=== PATIENT | female | born 1960 | race Caucasian/White ===

== ENCOUNTER → 2017-08-14 11:56 | Outpatient (CLI) | payer OTHER, SELFPAY ==
[2017-08-14 13:59] LABS: Absolute Lymphocyte Count 1.85 X10^3/ul (0.83-4.51); Absolute Neutrophil Count 2.3 X10^3/uL (2.0-7.7); Basophil# 0.02 X10^3/uL; Basophil% 0.4 % (0-1); Eosinophil# 0.07 X10^3/uL; Eosinophils% 1.5 % (0-5); Hematocrit 38.6 % (37-47); Hemoglobin 12.9 g/dl (12.0-15.0); Lymphocyte # 1.85 X10^3/ul (4.0); Mean Corp Hgb Conc 33.4 g/gl (32-36); Mean Corpuscular Hgb 31.2 pg (27.0-32.0); Mean Corpuscular Volume 93.5 fL (81-99); Mean Platelet Vol. 9.2 fl (6.2-12.0); Monocyte# 0.43 X10^3/uL; Monocyte% 9.3 % (0-10); Neutrophil # 2.25 X10^3/uL (2.7-7.7); Neutrophil % 48.8 % (47-70); Platelet Count 354 K/mm3 (150-450); RBC Distribution Width CV 12.2 % (11.6-14.6); RBC Distribution Width SD 40.9 fl (35.1-43.9); Red Blood Count 4.13 M/mm3 (4.2-5.4); White Blood Count 4.6 K/mm3 (4.4-11.0)
[2017-08-14 14:03] LABS: POSITIVE COUNT NO; POSITIVE DIFFERENTIAL NO; POSITIVE MORPHOLOGY NO
[2017-08-14 14:13] LABS: Progesterone Level 0.26 ng/mL (See Comment); Vitamin B12 755 pg/mL (211-911)
[2017-08-14 14:21] LABS: ALB/GLOB Ratio 1.2 RATIO (0.9-2.4); AST(SGOT) 13 U/L (15-37); Alanine Aminotransfer ALT/SGPT 23 U/L (13-56); Albumin, Serum 4.1 g/dL (3.2-5.0); Alkaline Phosphatase 55 U/L (45-117); Anion Gap 6 (5-15); BUN 15 mg/dL (7-18); BUN/Creat Ratio 21.5 RATIO (10-20); Chloride 105 mmol/L (98-107); Cholesterol 290 mg/dL (200); EST Glomerular Filtration Rate 92 mL/min (>60); Est Glom Filt Rate - Afr Amer 112 mL/min (>60); Estradiol 28.9 pg/mL; Follicle Stimulating Hormone 34.9 mIU/mL; Free T3 2.3 pg/mL (2.18-3.98); Globulin 3.4 g/dL (2.2-4.2); Glucose 91 mg/dL (74-106); High Density Lipoprotein 71 mg/dL; Potassium 4.2 mmol/L (3.5-5.1); Protein, Total 7.5 g/dL (6.4-8.2); Sodium Level 137 mmol/L (136-145); T4 Free Direct 0.75 ng/dL (0.76-1.46); Thyroid Stim Hormone (TSH) 1.32 uIU/mL (0.358-3.74); Triglycerides 137 mg/dL; Very Low Density Lipoprotein 27 mg/dL (5-40)
[2017-08-16 12:58] LABS: Vitamin D 1,25-Dihydroxy 45.1 pg/mL (19.9-79.3)
[2017-08-18 14:08] LABS: DHEA Sulfate 112.1 ug/dL (29.4-220.5); Insulin Like Growth Factor 91 ng/mL (53-190); T3 Reverse 12.5 ng/dL (9.2-24.1); Testosterone, % Free 2.63 % (0.50-2.80); Testosterone, Free 0.26 ng/dL (0.10-0.85); Testosterone, Total 10 ng/dL (3-41)
[2017-08-18 14:20] LABS: Anti-Thyroglobulin AB < 1.0 IU/mL (0.0-0.9); Thyroid Peroxidase AB 14 IU/mL (0-34)
== END ==
PROVIDERS: Family Provider Family Medicine; PCP Family Medicine
DX: N95.1 Menopausal and female climacteric states (principal); N94.3 Premenstrual tension syndrome; R53.83 Other fatigue; R68.82 Decreased libido; E55.9 Vitamin D deficiency, unspecified; E53.8 Deficiency of other specified B group vitamins; E23.3 Hypothalamic dysfunction, not elsewhere classified; E07.9 Disorder of thyroid, unspecified
CPT/HCPCS: 36415; 80053; 80061; 82607; 82627; 82652; 82670; 82746; 83001; 84144; 84305; 84402; 84403; 84432; 84439; 84443; 84481; 84482; 85025; 86376; 86800; 82626

== ENCOUNTER → 2017-12-08 07:56 | Outpatient (CLI) | payer OTHER, SELFPAY ==
[2017-12-08 10:56] LABS: Cholesterol 298 mg/dL (200); High Density Lipoprotein 72 mg/dL; T4 Total, Thyroxin 7.1 ug/dL (4.8-13.9); Thyroid Stim Hormone (TSH) 2.35 uIU/mL (0.358-3.74); Triglycerides 134 mg/dL; Very Low Density Lipoprotein 27 mg/dL (5-40)
== END ==
PROVIDERS: Family Provider Family Medicine; PCP Family Medicine; Visit Provider Family Medicine
DX: R53.81 Other malaise (principal); E78.00 Pure hypercholesterolemia, unspecified
CPT/HCPCS: 36415; 80061; 84436; 84443

== ENCOUNTER → 2017-12-15 16:13 | Outpatient (CLI) | payer OTHER, SELFPAY ==
--- NOTE | 2017-12-15 15:00 | LIP_PTH ---
PATIENT: GEOVANNY GONZALES LOC: [facility] U#:[id number] AGE/SX: 65/F ROOM: RE12/15/[address]: Dr. Sarai Hill MD : 1960 BED: DIS: SPEC #: [id number] RECD: 12/15/17 16:11 STATUS: ANTONIO REJaci #: [id number] JEMAL: 12/15/17 15:[address]: Sarai Hill DEPT: SURGICAL PATHOLOGY RECD BY: Casimiro Burroughs ENTERED: 12/18/17 13:30 SP TYPE: LIPOMA OTHR DR: Dr. Colton Hernandez MD Tissues: Soft tissues, NOS Procedures: Surgery Specimen Level III HEADER OPERATION: Excision of right shoulder lipoma PRE-OP DIAGNOSIS: Right shoulder lipoma TISSUE SUBMITTED: Right shoulder lipoma MICROSCOPIC DIAGNOSIS Soft tissue lesion of right shoulder, excision: Mature adipose tissue consistent with lipoma. AM:gio 12/19/17 MICROSCOPIC DESCRIPTION Slides are reviewed. GROSS DESCRIPTION Received in fixative is one container labeled with the patient's name and designated right shoulder lipoma. The specimen consists of an irregular fragment of yellow fatty tissue measuring 4.5 x 3.5 x 2.5 cm. Serial sections reveal homogenous yellow cut surfaces without areas of cyst formation, necrosis or hemorrhage. Hunter Trapper sections are submitted in two cassettes. / AM:gio 12/18/17 TC:1 CPT: 24180
== END ==
PROVIDERS: Family Provider Family Medicine; PCP Family Medicine; Visit Provider Surgery
DX: D17.39 Benign lipomatous neoplasm of skin and subcutaneous tissue of other sites (principal)
CPT/HCPCS: 88304

== ENCOUNTER → 2018-02-09 11:40 | Outpatient (CLI) | payer OTHER, SELFPAY ==
--- NOTE | 2018-02-09 11:43 | BI_ITS ---
MAMMOGRAPHY - BILATERAL SCREENING REASON FOR EXAM: Female, 58 years old. Routine annual screening examination. PERTINENT HISTORY: Non-contributory. TECHNIQUE: Digital bilateral breast татьяна (3D mammographic acquisition) in the CC and MLO projections. 2-D mediolateral oblique (MLO) and craniocaudad (CC) views of both breasts were obtained. CAD: Full Field Digital Mammography with Computer Added Detection was performed. COMPARISON: Comparison is made with prior outside examination dated November 26, 2015. FINDINGS: Breast Composition: There are scattered areas of fibroglandular density. There are no dominant masses or suspicious calcifications. Stable 7.8 mm well-defined nodule in the axillary region of the left breast incomplete with a small lymph node. No other significant abnormalities are identified. There has been no significant change since the prior study. BI/SCREENING MAMM (CAD), BILAT IMPRESSION: Stable bilateral screening mammogram. Yearly follow-up mammogram recommended. (A) ASSESSMENT CATEGORY: BIRADS Category 2: Benign. A letter regarding these results will be sent to the patient by the facility within 30 days. Approximately 10% of breast cancers are not detected by mammography. A normal mammogram should not delay biopsy of a clinically suspicious abnormality. [id number] Electronically Signed: Vikram Chaves MD at 8:57 EDT Tel [phone], Service support ,
== END ==
PROVIDERS: Family Provider Family Medicine; PCP Family Medicine; Visit Provider Family Medicine
DX: Z12.31 Encounter for screening mammogram for malignant neoplasm of breast (principal)
CPT/HCPCS: 77063; 77067

== ENCOUNTER → 2018-06-04 11:04 | Outpatient (CLI) | payer OTHER, SELFPAY ==
[2017-12-08 08:53] VITALS: BMI 23.3
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
== END ==
PROVIDERS: Family Provider Family Medicine; PCP Family Medicine; Referring Provider Family Medicine; Visit Provider Family Medicine
DX: M54.2 Cervicalgia (principal)
CPT/HCPCS: 72050

== ENCOUNTER → 2018-09-20 06:45 | Outpatient (CLI) | payer OTHER, SELFPAY ==
[2018-09-20 07:43] LABS: Absolute Lymphocyte Count 1.46 X10^3/ul (0.83-4.51); Absolute Neutrophil Count 1.6 X10^3/uL (2.0-7.7); Basophil# 0.01 X10^3/uL; Basophil% 0.3 % (0-1); Eosinophil# 0.09 X10^3/uL; Eosinophils% 2.6 % (0-5); Hematocrit 44.2 % (37-47); Hemoglobin 14.6 g/dl (12.0-15.0); Lymphocyte # 1.46 X10^3/ul (4.0); Lymphocyte % 42.1 % (19-41); Mean Corpuscular Hgb 31.1 pg (27.0-32.0); Mean Corpuscular Volume 94.2 fL (81-99); Mean Platelet Vol. 9.1 fl (6.2-12.0); Monocyte# 0.31 X10^3/uL; Monocyte% 8.9 % (0-10); Neutrophil % 46.1 % (47-70); Platelet Count 381 K/mm3 (150-450); RBC Distribution Width CV 12.5 % (11.6-14.6); RBC Distribution Width SD 42.2 fl (35.1-43.9); Red Blood Count 4.69 M/mm3 (4.2-5.4); White Blood Count 3.5 K/mm3 (4.4-11.0)
[2018-09-20 07:44] LABS: POSITIVE COUNT NO; POSITIVE DIFFERENTIAL NO; POSITIVE MORPHOLOGY NO
[2018-09-20 08:40] LABS: BUN 12 mg/dL (7-18); Creatinine, Serum 0.64 mg/dL (0.55-1.02); EST Glomerular Filtration Rate 102 mL/min (>60); Glucose 86 mg/dL (74-106)
[2018-09-20 08:41] LABS: ALB/GLOB Ratio 1.1 RATIO (0.9-2.4); AST(SGOT) 20 U/L (15-37); Alanine Aminotransfer ALT/SGPT 28 U/L (13-56); Albumin, Serum 4.3 g/dL (3.2-5.0); Alkaline Phosphatase 65 U/L (45-117); Anion Gap 11 (5-15); BUN/Creat Ratio 18.7 RATIO (10-20); Calcium,Total 9.7 mg/dL (8.5-10.1); Chloride 101 mmol/L (98-107); Est Glom Filt Rate - Afr Amer 123 mL/min (>60); Follicle Stimulating Hormone 64.3 mIU/mL; Free T3 2.7 pg/mL (2.18-3.98); Potassium 3.9 mmol/L (3.5-5.1); Protein, Total 8.3 g/dL (6.4-8.2); Sodium Level 138 mmol/L (136-145); T4 Free Direct 0.83 ng/dL (0.76-1.46); Thyroid Stim Hormone (TSH) 2.01 uIU/mL (0.358-3.74)
[2018-09-23 20:06] LABS: DHEA Sulfate 147.8 ug/dL (29.4-220.5); Testosterone, % Free 0.82 % (0.50-2.80); Testosterone, Free 0.12 ng/dL (0.10-0.85); Testosterone, Total 15 ng/dL (3-41)
[2018-09-24 09:48] LABS: Insulin Like Growth Factor 108 ng/mL (46-172)
[2018-12-26 10:17] LABS: Absolute Lymphocyte Count 1.73 X10^3/uL (0.83-4.51); Absolute Neutrophil Count 1.2 X10^3/uL (2.0-7.7); Basophil# 0.04 X10^3/uL; Basophil% 1.2 % (0-1); Eosinophil# 0.09 X10^3/uL; Eosinophils% 2.6 % (0-5); Hematocrit 37.8 % (37-47); Hemoglobin 12.2 g/dL (12.0-15.0); Lymphocyte # 1.73 X10^3/ul (4.0); Lymphocyte % 50.7 % (19-41); Mean Corp Hgb Conc 32.3 g/dL (32-36); Mean Corpuscular Hgb 31.4 pg (27.0-32.0); Mean Corpuscular Volume 97.2 fL (81-99); Mean Platelet Vol. 8.8 fl (6.2-12.0); Monocyte# 0.34 X10^3/uL; NRBC Flagged by Analyzer 0 % (0-5); Neutrophil # 1.21 X10^3/uL (2.7-7.7); Neutrophil % 35.5 % (47-70); Platelet Count 375 K/mm3 (150-450); RBC Distribution Width SD 42.8 fl (35.1-43.9); Red Blood Count 3.89 M/mm3 (4.2-5.4); White Blood Count 3.4 K/mm3 (4.4-11.0)
[2018-12-26 10:43] LABS: Cholesterol 291 mg/dL (200); Follicle Stimulating Hormone 39.4 mIU/mL; High Density Lipoprotein 72 mg/dL; Prothrombin Time (Protime)PT. 13.4 SECONDS (11.7-14.9); Triglycerides 155 mg/dL; Very Low Density Lipoprotein 31 mg/dL (5-40)
[2018-12-26 10:44] LABS: Partial Thromboplast Time 29.6 Seconds (24.1-36.2)
[2018-12-29 12:07] LABS: Testosterone, Total 127 ng/dL (3-41)
[2018-12-29 15:18] LABS: Testosterone, % Free 1.65 % (0.50-2.80)
== END ==
PROVIDERS: Family Provider Family Medicine; PCP Family Medicine
DX: E55.9 Vitamin D deficiency, unspecified (principal); N95.1 Menopausal and female climacteric states; R53.83 Other fatigue; R68.82 Decreased libido; E23.3 Hypothalamic dysfunction, not elsewhere classified
CPT/HCPCS: 36415; 80053; 80061; 82306; 82627; 83001; 84305; 84402; 84403; 84439; 84443; 84481; 85025; 85610; 85730; 82626

== ENCOUNTER → 2018-12-26 07:47 | Outpatient (CLI) | payer OTHER, SELFPAY | PROVIDERS: Family Provider Family Medicine; PCP Family Medicine | DX: N95.1 Menopausal and female climacteric states (principal); E23.3 Hypothalamic dysfunction, not elsewhere classified ==

== ENCOUNTER → 2019-12-19 09:15 | Outpatient (CLI) | payer OTHER, SELFPAY ==
[2017-12-08 08:53] VITALS: BMI 23.3
[2019-12-19 10:37] LABS: ALB/GLOB Ratio 1.1 RATIO (0.9-2.4); AST(SGOT) 12 U/L (15-37); Alanine Aminotransfer ALT/SGPT 20 U/L (13-56); Albumin, Serum 3.9 g/dL (3.2-5.0); Alkaline Phosphatase 46 U/L (45-117); Anion Gap 5 (5-15); BUN 15 mg/dL (7-18); BUN/Creat Ratio 21.4 RATIO (10-20); Calcium,Total 8.4 mg/dL (8.5-10.1); Chloride 108 mmol/L (98-107); EST Glomerular Filtration Rate 91 mL/min (>60); Est Glom Filt Rate - Afr Amer 110 mL/min (>60); Follicle Stimulating Hormone 11.9 mIU/mL; Free T3 2.6 pg/mL (2.18-3.98); Globulin 3.4 g/dL (2.2-4.2); Glucose 87 mg/dL (74-106); Potassium 3.8 mmol/L (3.5-5.1); Protein, Total 7.3 g/dL (6.4-8.2); Sodium Level 138 mmol/L (136-145); T4 Free Direct 0.77 ng/dL (0.76-1.46); Thyroid Stim Hormone (TSH) 2.18 uIU/mL (0.358-3.74)
[2019-12-23 12:07] LABS: Testosterone, Free 3.59 ng/dL (0.10-0.85); Testosterone, Total 219 ng/dL (3-41)
[2019-12-23 13:27] LABS: Testosterone, % Free 1.64 % (0.50-2.80)
== END ==
PROVIDERS: PCP Family Medicine
DX: N95.1 Menopausal and female climacteric states (principal); E07.9 Disorder of thyroid, unspecified
CPT/HCPCS: 36415; 80053; 83001; 84402; 84403; 84439; 84443; 84481

== ENCOUNTER → 2020-09-10 10:27 | Outpatient (CLI) | payer OTHER, SELFPAY ==
[2017-12-08 08:53] VITALS: BMI 23.3
[2020-09-10 12:12] LABS: Absolute Lymphocyte Count 1.69 X10^3/uL (0.83-4.51); Absolute Neutrophil Count 1.9 X10^3/uL (2.0-7.7); Basophil# 0.03 X10^3/uL; Basophil% 0.7 % (0-1); Eosinophil# 0.04 X10^3/uL; Hematocrit 40.9 % (37-47); Hemoglobin 13.4 g/dL (12.0-15.0); Lymphocyte # 1.69 X10^3/ul (0.83-4.51); Lymphocyte % 41.2 % (19-41); Mean Corp Hgb Conc 32.8 g/dL (32-36); Mean Corpuscular Hgb 30.9 pg (27.0-32.0); Mean Corpuscular Volume 94.2 fL (81-99); Mean Platelet Vol. 8.9 fl (6.2-12.0); Monocyte# 0.43 X10^3/uL; Monocyte% 10.5 % (0-10); NRBC Flagged by Analyzer 0 % (0-5); Neutrophil # 1.89 X10^3/uL (2.7-7.7); Neutrophil % 46.1 % (47-70); Platelet Count 403 K/mm3 (150-450); RBC Distribution Width CV 12.1 % (11.6-14.6); RBC Distribution Width SD 42.4 fl (35.1-43.9); Red Blood Count 4.34 M/mm3 (4.2-5.4); White Blood Count 4.1 K/mm3 (4.4-11.0)
[2020-09-10 12:35] LABS: ALB/GLOB Ratio 1.1 RATIO (0.9-2.4); AST(SGOT) 13 U/L (15-37); Alanine Aminotransfer ALT/SGPT 21 U/L (13-56); Alkaline Phosphatase 56 U/L (45-117); Anion Gap 5 (5-15); BUN 16 mg/dL (7-18); BUN/Creat Ratio 23.6 RATIO (10-20); Calcium,Total 9.3 mg/dL (8.5-10.1); Chloride 103 mmol/L (98-107); Cholesterol 312 mg/dL (200); Creatinine, Serum 0.68 mg/dL (0.55-1.02); EST Glomerular Filtration Rate 95 mL/min (>60); Est Glom Filt Rate - Afr Amer 114 mL/min (>60); Globulin 3.7 g/dL (2.2-4.2); Glucose 80 mg/dL (74-106); High Density Lipoprotein 77 mg/dL; Potassium 4.2 mmol/L (3.5-5.1); Protein, Total 7.7 g/dL (6.4-8.2); Sodium Level 137 mmol/L (136-145); Triglycerides 107 mg/dL; Very Low Density Lipoprotein 21 mg/dL (5-40)
== END ==
PROVIDERS: PCP Family Medicine; Referring Provider Family Medicine; Visit Provider Family Medicine
DX: E78.00 Pure hypercholesterolemia, unspecified (principal); D72.819 Decreased white blood cell count, unspecified
CPT/HCPCS: 36415; 80053; 80061; 85025

== ENCOUNTER → 2020-09-16 10:18 | Outpatient (CLI) | payer OTHER, SELFPAY ==
[2020-09-16 09:08] VITALS: BMI 24.0
[2020-09-16 12:50] LABS: HIV - WCH Non-Reactive (Nonreactive)
[2020-09-16 12:52] LABS: AST(SGOT) 19 U/L (15-37); Alanine Aminotransfer ALT/SGPT 26 U/L (13-56); Albumin, Serum 4.2 g/dL (3.2-5.0); Alkaline Phosphatase 60 U/L (45-117); Anion Gap 5 (5-15); BUN 15 mg/dL (7-18); BUN/Creat Ratio 20.8 RATIO (10-20); Calcium,Total 9.5 mg/dL (8.5-10.1); Chloride 103 mmol/L (98-107); Cholesterol 297 mg/dL (200); Creatinine, Serum 0.72 mg/dL (0.55-1.02); EST Glomerular Filtration Rate 88 mL/min (>60); Est Glom Filt Rate - Afr Amer 107 mL/min (>60); Glucose 85 mg/dL (74-106); High Density Lipoprotein 81 mg/dL; Potassium 4.5 mmol/L (3.5-5.1); Protein, Total 8.2 g/dL (6.4-8.2); Sodium Level 134 mmol/L (136-145); Triglycerides 185 mg/dL; Very Low Density Lipoprotein 37 mg/dL (5-40)
[2020-09-17 20:08] LABS: HEPATITIS B SURFACE AG Negative (Negative); Hepatitis A AB, Total Negative (Negative); Hepatitis A IgM Antibody Negative (Negative); Hepatitis B Core AB IgM Negative (Negative); Hepatitis B Core Ab Total Negative (Negative); Hepatitis C Ab <0.1 s/co ratio (0.0-0.9)
[2020-09-18 08:29] LABS: EBV Acute VCA IgM < 36.0 U/mL (0.0-35.9); EBV-VCA IgG 86.1 U/mL (0.0-17.9); Hep B Surface Antibodies Non Reactive (.)
[2020-09-19 14:18] LABS: HPV APTIMA, High Risk Negative (Negative)
== END ==
PROVIDERS: PCP Family Medicine; Referring Provider Family Medicine; Visit Provider Family Medicine
DX: Z12.4 Encounter for screening for malignant neoplasm of cervix (principal); E78.00 Pure hypercholesterolemia, unspecified; D72.820 Lymphocytosis (symptomatic)
CPT/HCPCS: 36415; 80053; 80061; 86644; 86664; 86665; 86703; 86704; 86705; 86706; 86708; 86709; 86803; 87340; 87624; 88175; G0145

== ENCOUNTER → 2020-09-25 07:07 | Outpatient (CLI) | payer OTHER, SELFPAY ==
[2020-09-16 09:08] VITALS: BMI 24.0
--- NOTE | 2020-09-25 07:01 | BI_ITS ---
MAMMOGRAPHY - BILATERAL SCREENING REASON FOR EXAM: Female, 60 years old. Routine annual screening examination. PERTINENT HISTORY: Non-contributory. TECHNIQUE: Digital bilateral breast hayley (3D mammographic acquisition) in the CC and MLO projections. 2-D mediolateral oblique (MLO) and craniocaudad (CC) views of both breasts were obtained. CAD: Full Field Digital Mammography with Computer Added Detection was performed. COMPARISON: Comparison is made with prior examination of 02/09/2018. FINDINGS: Breast Composition: There are scattered areas of fibroglandular density. There are no dominant masses or suspicious calcifications. Stable 7.8 mm well-defined nodule in the axillary region of the left breast suggestive of a small lymph node. A fatty hilum is seen. No other significant abnormalities are identified. There has been no significant change since the prior study. BI/SCRN MAMM (CAD)W/HAYLEY BILAT IMPRESSION: Stable bilateral screening mammogram. Yearly follow-up mammogram recommended. (A) ASSESSMENT CATEGORY: BIRADS Category 2: Benign. A letter regarding these results will be sent to the patient by the facility within 30 days. Approximately 10% of breast cancers are not detected by mammography. A normal mammogram should not delay biopsy of a clinically suspicious abnormality. [id number] Electronically Signed: Vikram Chaves MD at 8:38 EDT , Service support ,
== END ==
PROVIDERS: PCP Family Medicine; Referring Provider Nurse Practitioner Women's Health; Visit Provider Nurse Practitioner Women's Health
DX: Z12.31 Encounter for screening mammogram for malignant neoplasm of breast (principal)
CPT/HCPCS: 77063; 77067

== ENCOUNTER → 2020-12-16 07:03 | Outpatient (CLI) | payer OTHER, SELFPAY ==
[2020-12-16 10:19] LABS: Cholesterol 275 mg/dL (200); High Density Lipoprotein 84 mg/dL; Triglycerides 124 mg/dL; Very Low Density Lipoprotein 25 mg/dL (5-40)
== END ==
PROVIDERS: PCP Family Medicine; Referring Provider Family Medicine; Visit Provider Family Medicine
DX: E78.00 Pure hypercholesterolemia, unspecified (principal)
CPT/HCPCS: 36415; 80061

== ENCOUNTER 2021-07-06 09:24 | Outpatient (CLI) | payer OTHER, SELFPAY ==
[2021-07-06 10:35] LABS: ALB/GLOB Ratio 1.2 RATIO (0.9-2.4); AST(SGOT) 13 U/L (15-37); Alanine Aminotransfer ALT/SGPT 21 U/L (13-56); Albumin, Serum 3.8 g/dL (3.2-5.0); Alkaline Phosphatase 53 U/L (45-117); Anion Gap 3 (5-15); BUN 18 mg/dL (7-18); BUN/Creat Ratio 25.1 RATIO (10-20); Calcium,Total 9.4 mg/dL (8.5-10.1); Chloride 107 mmol/L (98-107); Creatinine, Serum 0.72 mg/dL (0.55-1.02); EST Glomerular Filtration Rate 89 mL/min (>60); Est Glom Filt Rate - Afr Amer 107 mL/min (>60); Globulin 3.3 g/dL (2.2-4.2); Glucose 92 mg/dL (74-106); Protein, Total 7.1 g/dL (6.4-8.2); Sodium Level 139 mmol/L (136-145)
[2021-07-12 17:23] LABS: Fats, Neutral Normal (.); Fats, Total Normal (.)
== END 2021-07-06 23:59 | disposition home or self-care (01) ==
PROVIDERS: PCP Family Medicine; Referring Provider Family Medicine; Visit Provider Family Medicine
DX: R19.7 Diarrhea, unspecified (principal)
CPT/HCPCS: 36415; 80053; 82705; 83630; 83735; 87177; 87209; 87493; 87506

== ENCOUNTER → 2021-09-03 | Outpatient (CLI) | payer OTHER, SELFPAY ==
[2021-09-03 18:02] LABS: CRP < 2.90 mg/L (0.0-3.0)
[2021-09-06 18:07] LABS: Endomysial Antibody IgA Negative (Negative)
[2021-09-06 21:44] LABS: Immunoglobulin A 176 mg/dL (87-352); t-Transglutaminase IgA <2 U/mL (0-3)
== END | disposition home or self-care (01) ==
LOC: MTLAB 14:22
PROVIDERS: PCP Family Medicine; Referring Provider Internal Medicine Gastroenterology; Visit Provider Internal Medicine Gastroenterology
DX: R19.7 Diarrhea, unspecified (principal)
CPT/HCPCS: 36415; 82784; 83516; 86140; 86255

== ENCOUNTER → 2022-05-04 | Outpatient (CLI) | payer OTHER, SELFPAY ==
[2022-05-04 15:43] LABS: Absolute Lymphocyte Count 2.15 X10^3/uL (0.83-4.51); Absolute Neutrophil Count 1.6 X10^3/uL (2.0-7.7); Basophil# 0.04 X10^3/uL; Eosinophil# 0.03 X10^3/uL; Eosinophils% 0.7 % (0-5); Hemoglobin 13.1 g/dL (12.0-15.0); Lymphocyte # 2.15 X10^3/ul (0.83-4.51); Lymphocyte % 51.2 % (19-41); Mean Corp Hgb Conc 33.6 g/dL (32-36); Mean Corpuscular Hgb 31.3 pg (27.0-32.0); Mean Corpuscular Volume 93.3 fL (81-99); Mean Platelet Vol. 8.5 fl (6.2-12.0); Monocyte# 0.34 X10^3/uL; Monocyte% 8.1 % (0-10); NRBC Flagged by Analyzer 0 % (0-5); Neutrophil # 1.63 X10^3/uL (2.7-7.7); Neutrophil % 38.8 % (47-70); Platelet Count 556 K/mm3 (150-450); RBC Distribution Width CV 11.8 % (11.6-14.6); RBC Distribution Width SD 40.2 fl (35.1-43.9); Red Blood Count 4.18 M/mm3 (4.2-5.4); White Blood Count 4.2 K/mm3 (4.4-11.0)
[2022-05-04 16:06] LABS: Erythrocyte Sedimentation Rate 10 mm/hr (0-30)
[2022-05-04 16:15] LABS: PTHIN 33.8 pg/mL (18.4-80.1)
[2022-05-04 16:19] LABS: Vitamin B12 668 pg/mL (211-911)
[2022-05-04 16:30] LABS: ALB/GLOB Ratio 1.4 RATIO (0.9-2.4); AST(SGOT) 13 U/L (15-37); Alanine Aminotransfer ALT/SGPT 24 U/L (13-56); Albumin, Serum 4.2 g/dL (3.2-5.0); Alkaline Phosphatase 63 U/L (45-117); Anion Gap 7 (5-15); BUN 10 mg/dL (7-18); BUN/Creat Ratio 14.7 RATIO (10-20); CRP 3.66 mg/L (0.0-3.0); Calcium,Total 9.5 mg/dL (8.5-10.1); Chloride 102 mmol/L (98-107); Creatinine, Serum 0.68 mg/dL (0.55-1.02); EST Glomerular Filtration Rate 94 mL/min (>60); Est Glom Filt Rate - Afr Amer 113 mL/min (>60); Ferritin 50 ng/mL (8-252); Globulin 3.1 g/dL (2.2-4.2); Glucose 79 mg/dL (74-106); Iron 90 ug/dL (50-170); Iron Binding Capacity,Total 353 ug/dL (250-450); Magnesium 2.5 mg/dL (1.6-2.6); PERCENT IRON SATURATION 25.5 % (15.0-55.0); Potassium 3.9 mmol/L (3.5-5.1); Protein, Total 7.3 g/dL (6.4-8.2); Sodium Level 140 mmol/L (136-145); T4 Free Direct 0.89 ng/dL (0.76-1.46); Thyroid Stim Hormone (TSH) 1.63 uIU/mL (0.358-3.74)
[2022-05-06 16:25] LABS: ANTINUCLEAR ANTIBODIES DIRECT Negative (Negative)
[2022-05-06 22:07] LABS: PROEL- A/G Ratio 1.3 (0.7-1.7); PROEL- Alpha-1 Globulin 0.3 g/dL (0.0-0.4); PROEL- Alpha-2 Globulin 0.7 g/dL (0.4-1.0); PROEL- Beta Globulin 1.2 g/dL (0.7-1.3); PROEL- Globulin, Total 3.1 g/dL (2.2-3.9); PROEL- TOTAL PROTEIN 7.1 g/dL (6.0-8.5); QNTFERON TB Mitogen Value > 10.00 IU/mL (.); QNTFERON TB Nil Value 0.01 IU/mL (.); QNTFERON TB1+ Ag Value 0.07 IU/mL (.); QNTFERON TB2+ Ag Value 0.07 IU/mL (.)
[2022-05-07 14:46] LABS: QNTIFERON TB Positive Criteria Negative (Negative)
== END | disposition home or self-care (01) ==
LOC: MFPLAB 12:09
PROVIDERS: PCP Family Medicine; Visit Provider Family Medicine
DX: R53.83 Other fatigue (principal); K52.831 Collagenous colitis; R21 Rash and other nonspecific skin eruption
CPT/HCPCS: 36415; 80053; 82607; 82627; 82728; 83540; 83550; 83735; 83970; 84165; 84439; 84443; 85025; 85652; 86038; 86140; 86225; 86235; 86480; 82626

== ENCOUNTER → 2022-05-06 | Outpatient (CLI) | payer OTHER, SELFPAY ==
[2022-05-06 15:09] LABS: Absolute Lymphocyte Count 2.14 X10^3/uL (0.83-4.51); Absolute Neutrophil Count 1.6 X10^3/uL (2.0-7.7); Basophil# 0.04 X10^3/uL; Basophil% 0.9 % (0-1); Eosinophil# 0.05 X10^3/uL; Eosinophils% 1.2 % (0-5); Hematocrit 39.2 % (37-47); Hemoglobin 12.5 g/dL (12.0-15.0); Lymphocyte # 2.14 X10^3/ul (0.83-4.51); Lymphocyte % 49.7 % (19-41); Mean Corp Hgb Conc 31.9 g/dL (32-36); Mean Corpuscular Hgb 30.3 pg (27.0-32.0); Mean Corpuscular Volume 95.1 fL (81-99); Mean Platelet Vol. 8.7 fl (6.2-12.0); Monocyte# 0.47 X10^3/uL; Monocyte% 10.9 % (0-10); NRBC Flagged by Analyzer 0 % (0-5); Neutrophil # 1.59 X10^3/uL (2.7-7.7); Neutrophil % 36.8 % (47-70); Platelet Count 547 K/mm3 (150-450); RBC Distribution Width CV 11.9 % (11.6-14.6); RBC Distribution Width SD 41.1 fl (35.1-43.9); Red Blood Count 4.12 M/mm3 (4.2-5.4); White Blood Count 4.3 K/mm3 (4.4-11.0)
[2022-05-06 16:02] LABS: CRP < 2.90 mg/L (0.0-3.0)
[2022-05-13 18:07] LABS: Cortisol, Urinary Free 8 ug/L (Undefined)
[2022-05-13 20:27] LABS: Cortisol, Free 24Ur 11 ug/24 hr (6-42)
== END | disposition home or self-care (01) ==
LOC: MFPLAB 12:00
PROVIDERS: PCP Family Medicine; Visit Provider Family Medicine
DX: R53.83 Other fatigue (principal); K52.831 Collagenous colitis; R21 Rash and other nonspecific skin eruption
CPT/HCPCS: 36415; 81050; 82530; 85025; 86140

== ENCOUNTER → 2022-05-16 | Outpatient (CLI) | payer OTHER, SELFPAY ==
--- NOTE | 2022-05-16 13:45 | BI_ITS ---
MAMMOGRAPHY - BILATERAL SCREENING REASON FOR EXAM: Female, 62 years old. Routine annual screening examination. PERTINENT HISTORY: Non-contributory. TECHNIQUE: Digital bilateral breast hayley (3D mammographic acquisition) in the CC and MLO projections. 2-D mediolateral oblique (MLO) and craniocaudad (CC) views of both breasts were obtained. CAD: Full Field Digital Mammography with Computer Added Detection was performed. COMPARISON: Comparison is made with prior study dated 09/25/2020 and 02/09/2018. FINDINGS: Breast Composition: There are scattered areas of fibroglandular density. There are no dominant masses or suspicious calcifications. Stable benign-appearing bilateral axillary lymph nodes. No other significant abnormalities are identified. There has been no significant change since the prior study. BI/SCRN MAMM (CAD)W/HAYLEY BILAT IMPRESSION: Stable bilateral screening mammogram. Yearly follow-up mammogram recommended. (A) ASSESSMENT CATEGORY: BIRADS Category 2: Benign. A letter regarding these results will be sent to the patient by the facility within 30 days. Approximately 10% of breast cancers are not detected by mammography. A normal mammogram should not delay biopsy of a clinically suspicious abnormality. [id number] Electronically Signed: Vikram Chaves MD at 14:23 EST ,
== END | disposition home or self-care (01) ==
LOC: OPBI 13:35
PROVIDERS: PCP Family Medicine; Visit Provider Nurse Practitioner Women's Health
DX: Z12.31 Encounter for screening mammogram for malignant neoplasm of breast (principal)
CPT/HCPCS: 77063; 77067

== ENCOUNTER → 2022-06-01 | Outpatient (CLI) | payer OTHER, SELFPAY ==
[2022-06-01 17:56] LABS: Absolute Lymphocyte Count 1.91 X10^3/uL (0.83-4.51); Absolute Neutrophil Count 2.4 X10^3/uL (2.0-7.7); Basophil# 0.03 X10^3/uL; Basophil% 0.6 % (0-1); Eosinophil# 0.08 X10^3/uL; Eosinophils% 1.7 % (0-5); Hematocrit 38.7 % (37-47); Lymphocyte # 1.91 X10^3/ul (0.83-4.51); Mean Corp Hgb Conc 33.6 g/dL (32-36); Mean Corpuscular Hgb 31.2 pg (27.0-32.0); Mean Corpuscular Volume 92.8 fL (81-99); Mean Platelet Vol. 8.6 fl (6.2-12.0); Monocyte# 0.34 X10^3/uL; Monocyte% 7.1 % (0-10); NRBC Flagged by Analyzer 0 % (0-5); Neutrophil # 2.41 X10^3/uL (2.7-7.7); Neutrophil % 50.4 % (47-70); Platelet Count 401 K/mm3 (150-450); RBC Distribution Width CV 12.1 % (11.6-14.6); RBC Distribution Width SD 41.5 fl (35.1-43.9); Red Blood Count 4.17 M/mm3 (4.2-5.4); White Blood Count 4.8 K/mm3 (4.4-11.0)
[2022-06-03 18:08] LABS: EBV Acute VCA IgM < 36.0 U/mL (0.0-35.9); EBV-VCA IgG 72.9 U/mL (0.0-17.9); Lyme Scn Total Ab w/Rflx Negative (Negative)
== END | disposition home or self-care (01) ==
LOC: MFPLAB 15:48
PROVIDERS: PCP Family Medicine; Visit Provider Family Medicine
DX: R53.83 Other fatigue (principal)
CPT/HCPCS: 36415; 85025; 86618; 86664; 86665

== ENCOUNTER → 2022-06-15 | Outpatient (CLI) | payer OTHER, SELFPAY ==
[2022-06-17 19:56] LABS: CMV Acute Antibody IgM < 30.0 AU/mL (0.0-29.9)
== END | disposition home or self-care (01) ==
LOC: MFPLAB 11:28
PROVIDERS: PCP Family Medicine; Referring Provider Family Medicine; Visit Provider Family Medicine
DX: R53.83 Other fatigue (principal)
CPT/HCPCS: 36415; 86644; 86645

== ENCOUNTER → 2022-09-14 | Outpatient (CLI) | payer OTHER, SELFPAY ==
[2022-09-14 13:09] LABS: Erythrocyte Sedimentation Rate 11 mm/hr (0-30)
[2022-09-14 13:12] LABS: Absolute Lymphocyte Count 1.44 X10^3/uL (0.83-4.51); Absolute Neutrophil Count 2.2 X10^3/uL (2.0-7.7); Basophil# 0.05 X10^3/uL; Basophil% 1.2 % (0-1); Eosinophil# 0.08 X10^3/uL; Eosinophils% 1.9 % (0-5); Hematocrit 37.9 % (37-47); Lymphocyte # 1.44 X10^3/ul (0.83-4.51); Mean Corp Hgb Conc 31.7 g/dL (32-36); Mean Corpuscular Hgb 30.5 pg (27.0-32.0); Mean Corpuscular Volume 96.4 fL (81-99); Mean Platelet Vol. 8.8 fl (6.2-12.0); Monocyte# 0.38 X10^3/uL; Monocyte% 9.2 % (0-10); NRBC Flagged by Analyzer 0 % (0-5); Neutrophil # 2.15 X10^3/uL (2.7-7.7); Neutrophil % 52.5 % (47-70); Platelet Count 530 K/mm3 (150-450); RBC Distribution Width CV 12.1 % (11.6-14.6); RBC Distribution Width SD 43.2 fl (35.1-43.9); Red Blood Count 3.93 M/mm3 (4.2-5.4); White Blood Count 4.1 K/mm3 (4.4-11.0)
[2022-09-14 13:14] LABS: ALB/GLOB Ratio 1.2 RATIO (0.9-2.4); AST(SGOT) 18 U/L (15-37); Alanine Aminotransfer ALT/SGPT 26 U/L (13-56); Albumin, Serum 3.8 g/dL (3.2-5.0); Alkaline Phosphatase 79 U/L (45-117); Anion Gap 6 (5-15); BUN 19 mg/dL (7-18); BUN/Creat Ratio 30.4 RATIO (10-20); CPK Total, Creatine Kinase 53 U/L (26-192); Calcium,Total 8.9 mg/dL (8.5-10.1); Chloride 105 mmol/L (98-107); Cholesterol 269 mg/dL (200); Creatinine, Serum 0.63 mg/dL (0.55-1.02); EST Glomerular Filtration Rate 103 mL/min (>60); Est Glom Filt Rate - Afr Amer 125 mL/min (>60); Globulin 3.2 g/dL (2.2-4.2); Glucose 93 mg/dL (74-106); High Density Lipoprotein 75 mg/dL; Potassium 4.3 mmol/L (3.5-5.1); Sodium Level 139 mmol/L (136-145); T4 Free Direct 0.69 ng/dL (0.76-1.46); Thyroid Stim Hormone (TSH) 1.43 uIU/mL (0.358-3.74); Triglycerides 126 mg/dL; Very Low Density Lipoprotein 25 mg/dL (5-40)
[2022-09-14 13:31] LABS: HIV - WCH Non-Reactive (Nonreactive); Vitamin B12 685 pg/mL (211-911); Vitamin D,25 Hydroxy 61.6 ng/mL
[2022-09-17 21:07] LABS: VITAMIN B6 13.1 ug/L (3.4-65.2); Vitamin B1, Thiamine 100.2 nmol/L (66.5-200.0)
[2022-09-20 17:07] LABS: Anti-Thyroglobulin AB < 1.0 IU/mL (0.0-0.9); Thyroglobulin, Serum Qt. 26.7 ng/mL (1.5-38.5); Thyroid Peroxidase AB 11 IU/mL (0-34); Thyroid Stim Immunoglob <0.10 IU/L (0.00-0.55)
== END | disposition home or self-care (01) ==
LOC: MFPLAB 10:11
PROVIDERS: PCP Family Medicine; Visit Provider Family Medicine
DX: R79.89 Other specified abnormal findings of blood chemistry (principal); R53.83 Other fatigue; E78.00 Pure hypercholesterolemia, unspecified; E53.9 Vitamin B deficiency, unspecified; M62.81 Muscle weakness (generalized)
CPT/HCPCS: 36415; 80053; 80061; 82306; 82550; 82607; 84207; 84425; 84432; 84439; 84443; 84445; 85025; 85652; 86376; 86703; 86800

== ENCOUNTER → 2022-11-04 | Outpatient (CLI) | payer OTHER, SELFPAY ==
[2022-11-04 16:44] LABS: T4 Free Direct 0.84 ng/dL (0.76-1.46); Thyroid Stim Hormone (TSH) 1.43 uIU/mL (0.358-3.74)
[2022-11-08 09:09] LABS: Anti-Thyroglobulin AB < 1.0 IU/mL (0.0-0.9); Thyroglobulin, Serum Qt. 23.9 ng/mL (1.5-38.5); Thyroid Peroxidase AB < 9 IU/mL (0-34); Thyroid Stim Immunoglob <0.10 IU/L (0.00-0.55)
== END | disposition home or self-care (01) ==
LOC: MFPLAB 11:14
PROVIDERS: PCP Family Medicine; Visit Provider Family Medicine
DX: R79.89 Other specified abnormal findings of blood chemistry (principal)
CPT/HCPCS: 36415; 84432; 84439; 84443; 84445; 86376; 86800

== ENCOUNTER → 2022-12-23 | Outpatient (CLI) | payer OTHER, SELFPAY ==
[2022-12-23 12:26] LABS: Absolute Lymphocyte Count 1.28 X10^3/uL (0.83-4.51); Absolute Neutrophil Count 3.1 X10^3/uL (2.0-7.7); Basophil# 0.04 X10^3/uL; Basophil% 0.8 % (0-1); Eosinophil# 0.05 X10^3/uL; Erythrocyte Sedimentation Rate 1 mm/hr (0-30); Hemoglobin 12.1 g/dL (12.0-15.0); Lymphocyte # 1.28 X10^3/ul (0.83-4.51); Lymphocyte % 25.8 % (19-41); Mean Corp Hgb Conc 32.7 g/dL (32-36); Mean Corpuscular Hgb 30.6 pg (27.0-32.0); Mean Corpuscular Volume 93.7 fL (81-99); Mean Platelet Vol. 9.2 fl (6.2-12.0); Monocyte# 0.48 X10^3/uL; Monocyte% 9.7 % (0-10); NRBC Flagged by Analyzer 0 % (0-5); Neutrophil # 3.11 X10^3/uL (2.7-7.7); Neutrophil % 62.5 % (47-70); Platelet Count 376 K/mm3 (150-450); RBC Distribution Width CV 12.5 % (11.6-14.6); RBC Distribution Width SD 43.3 fl (35.1-43.9); Red Blood Count 3.95 M/mm3 (4.2-5.4)
== END | disposition home or self-care (01) ==
LOC: MTLAB 11:02
PROVIDERS: PCP Family Medicine; Referring Provider Family Medicine; Visit Provider Family Medicine
DX: R53.83 Other fatigue (principal)
CPT/HCPCS: 36415; 85025; 85652

== ENCOUNTER → 2023-05-04 | Outpatient (CLI) | payer OTHER, SELFPAY ==
--- OUTSIDE RECORDS SUMMARY | 2023-05-04 08:05 | XMS RPT_ITS | CCD ---
Author Name Unknown Address [address] [place] [address] Organization [facility] Care Team Providers Care Instrument And Electrical Technician Name Role Phone Randall JAQUEZ, Adela Osullivan Unavailable BARTOLO GAFFNEY, CHIDI Primary Care Physician [phone] Medications Current Medications Medication Drug Class(es) Dates Sig (Normalized) Sig (Original) FLUoxetine 20 mg oral tablet (1 source) Serotonin Reuptake Inhibitor Start: 09-30-2021 FLUoxetine (Eqv-Prozac) 20 mg oral tablet Dose : 20 mg = 1 tab(s), Oral, qDay, # 30 tab(s), 0 Refill(s) Start Date: 09/30/21 Status: Ordered Vital-D oral tablet (1 source) Start: 09-30-2021 take 1 tablet by mouth once daily Vital-D oral tablet Dose = 1 tab(s), Oral, qDay, # 100 tab(s), 0 Refill(s) Start Date: 09/30/21 Status: Ordered Vitamin B Complex oral tablet (1 source) Start: 09-30-2021 take 1 tablet by mouth once daily Vitamin B Complex oral tablet Dose = 1 tab(s), Oral, Daily, 0 Refill(s) Start Date: 09/30/21 Status: Ordered Completed/Discontinued Medications Medication Drug Class(es) Dates Sig (Normalized) Sig (Original) aspirin (4 sources) Nonsteroidal Anti-inflammatory Drug Start: 11-30-2016 ASPIR-81 81 MG TBEC ASPIRIN [id number] Adela Pereira NP cholecalciferol 1000 unt oral capsule (4 sources) Vitamin D Start: 11-30-2016 take 1 tablet by mouth once daily VITAMIN D3 1000 UNIT CAPS One tablet by mouth daily CHOLECALCIFEROL [id number] Adela Pereira SUPPORT SERVICES COORDINATOR Drug Treatment Unknown - unknown (1 source) No information available. PROGESTERONE COMPOUND (4 sources) Start: 11-30-2016 PROGESTERONE COMPOUND PROGESTERONE COMPOUND Adela Pereira SUPPORT SERVICES COORDINATOR thyroid (shelter) 65 mg oral tablet (4 sources) Start: 11-30-2016 take 1 tablet by mouth once daily NATURE-THROID 65 MG TABS One tablet by mouth daily THYROID [id number] Adela Pereira SUPPORT SERVICES COORDINATOR vitamin b 12 0.25 mg oral tablet (4 sources) Vitamin B12 Start: 11-30-2016 take 1 tablet by mouth once daily VITAMIN B-12 250 MCG TABS One tablet by mouth daily CYANOCOBALAMIN [id number] Adela Pereira SUPPORT SERVICES COORDINATOR Problems Problem Classification Problem Date Documented Date Episodic/Chronic Unclassified (4 sources) Gynecologic examination ; Translations: [Encounter for gynecological examination (general) (routine) without abnormal findings] Onset: 11-30-2016 11-30-2016 Unclassified (4 sources) Screening mammography ; Translations: [Encounter for screening mammogram for malignant neoplasm of breast] Onset: 11-23-2016 11-24-2016 Results Test Name Value Interpretation Reference Range Facil ity Vital Signs Date Time Vital Sign Value Performing Clinician Facility 10-01-2021 10:40-0400 Diastolic Blood Pressure NBP [address] CHARISSA NOWAK MD [facility] 10-01-2021 10:40-0400 Heart rate 60 /min DR CHARISSA NOWAK MD [facility] 10-01-2021 10:40-0400 Respiratory rate 16 /min DR CHARISSA NOWAK MD [facility] 10-01-2021 10:40-0400 Systolic Blood Pressure NBP [address] CHARISSA NOWAK MD [facility] 10-01-2021 10:35-0400 Diastolic Blood Pressure NBP [address] CHARISSA NOWAK MD [facility] 10-01-2021 10:35-0400 Heart rate 60 /min DR CHARISSA NOWAK MD [facility] 10-01-2021 10:35-0400 Respiratory rate 16 /min DR CHARISSA NOWAK MD [facility] 10-01-2021 10:35-0400 Systolic Blood Pressure NBP [address] CHARISSA NOWAK MD [facility] 10-01-2021 10:30-0400 Body temperature 97.52 [degF] DR CHARISSA NOWAK MD [facility] 10-01-2021 10:30-0400 Diastolic Blood Pressure NBP [address] CHARISSA NOWAK MD [facility] 10-01-2021 10:30-0400 Heart rate 70 /min DR CHARISSA NOWAK MD [facility] 10-01-2021 10:30-0400 Respiratory rate 12 /min DR CHARISSA NOWAK MD [facility] 10-01-2021 10:30-0400 Systolic Blood Pressure NBP [address] CHARISSA NOWAK MD [facility] 10-01-2021 10:05-0400 Body temperature 97.16 [degF] DR CHARISSA NOWAK MD [facility] 10-01-2021 10:05-0400 Heart rate 62 /min DR CHARISSA NOWAK MD [facility] 10-01-2021 09:12-0400 Body height 162.[address] CHARISSA NOWAK MD [facility] 10-01-2021 09:12-0400 Body weight 52.[address] CHARISSA NOWAK MD [facility] 10-01-2021 09:12-0400 Body weight 19.78 kg/m2 DR CHARISSA NOWAK MD [facility] 11-30-2016 15:25-0400 BMI (Body Mass Index) 24.69 kg/m2 Adela Pereira NP [facility] 11-30-2016 15:25-0400 Body Temperature 97.8 [degF] Adela Pereira SUPPORT SERVICES COORDINATOR [facility] 11-30-2016 15:25-0400 Body Temperature 97.81 [degF] Adela Pereira SUPPORT SERVICES COORDINATOR [facility] 11-30-2016 15:25-0400 BP Diastolic 86 mm[Hg] Adela Pereira NP [facility] 11-30-2016 15:25-0400 BP Systolic 110 mm[Hg] Adela Pereira SUPPORT SERVICES COORDINATOR [facility] 11-30-2016 15:25-0400 Height 160.02 cm Ad[facility] Pe[facility] 11-30-2016 15:25-0400 Pulse (Heart Rate) 72 /min Adela Pereira NP [facility] 11-30-2016 15:25-0400 Respiratory Rate 16 /min Adela Pereira NP [facility] 11-30-2016 15:25-0400 Weight 63.23 kg Adela Pereira NP [facility] Encounters Encounter Date Encounter Type Care Provider Facility Start: 10-01-2021 End: 10-01-[address] CHARISSA NOWAK MD [facility] Procedures Date Procedure Procedure Detail Performing Clinician Start: 11-23-2016 End: 12-07-2016 Mammogram, screening Adela Pereira NP Work Phone: Start: 11-23-2016 Screening mammography Mammogra m yearly screening Adela Pereira NP Lipoma (disorder) DR CHARISSA NOWAK MD Plan of Treatment Date Care Activity Detail Author Start: 11-30-2016 End: 11-30-2016 Appointment Appointment [facility] Start: 11-23-2016 End: 12-07-2016 Mammogram, screening Mammogram, Screening, both breasts [facility] Social History Date Type Detail Facility Start: 10-01-2021 Tobacco smoking status Never s moked tobacco (finding) [facility] Sex Assigned At Female [facility] Functional Status Date Assessment Result Facility 10-01-2021 Functional Status Standard Safet y Safety level maintained [facility] 10-01-2021 Functional Status Maintained [facility] Mental Status Date Assessment Result Facility 10-01-2021 Mental Status Oriented x 4 [facility] 10-01-2021 Mental Status [facility] Evaluation + Plan note 10-01-2021 Note Date & Type Note Facility [facility] ADMISSION HISTORY AN D PHYSICIAL CHIEF COMPLAINT: HISTORY OF PRESENT ILLNESS: REVIEW OF SYSTEMS: ACTIVE PROBLEMS: (3) Anxiety and depression (113125134) Diarrhea (940891394) GERD (gastroesophageal reflux disease) (726602799) MEDICATIONS: Active Inpt Meds: None Active PRN Meds: None One Time Meds: (Completed) lidocaine (Xylocaine 2% 5 mL syringe (ANES) (ANES)) IV Push, Once, Stop: 10/01/21 10:19:00 EDT (Completed) propofol (propofol (ANES)) IV Push, Once, Stop: 10/01/21 10:20:00 EDT Active IV Meds: Lactated Ringers Infusion 1,000 mL (LR 1,000 mL) Start: 10/01/21 9:18:00 EDT, Rate: 50 mL/hr, 10/01/21 9:18:00 EDT ALLERGIES: (1) NKA FAMILY HISTORY: SOCIAL HISTORY: PHYSICAL EXAM: VITALS: ZiqpnaJumpZQAmevyKQVeX7HDD4XkwmBx(kg) 10/01 10:40--107/[id number]/10 52.3 10/01 10:35--107/[id number] 10/01 10:3036.4100/[id number] 10/01 10:25--95/[id number] 10/01 10:20--118/[id number] 24 Hr Tmax: 36.4 at 10/01 10:30 36 Hr Tmax: 36.4 at 10/01 10:30 Vital Signs are the last 5 in the past 48 hours. Weights display the last 5 within 7 days. Initial Wt: 10/01 52.3 kg 115 lb Current Wt: 10/01 52.3 kg 115 lb GENERAL: HEENT: CARDIOVASCULAR: RESPIRATORY: ABDOMEN: EXREMETIES: NEUROLOGICAL: PSYCHIATRIC: LABS: No 36hr Lab Data DIAGNOSTICS: IMPRESSION: PLAN: History and Physical Update I have examined the patient; reviewed the H&P and there are no changes to the H&P unless noted below. Extracted from: Title:Clinical Document Author:CHARISSA NOWAK Date:10/01/21 [facility] ADMISSION HISTORY AN D PHYSICIAL CHIEF COMPLAINT: HISTORY OF PRESENT ILLNESS: REVIEW OF SYSTEMS: ACTIVE PROBLEMS: (3) Anxiety and depression ([id number]) Diarrhea (510916635) GERD (gastroesophageal reflux disease) (273901801) MEDICATIONS: Active Inpt Meds: None Active PRN Meds: None One Time Meds: None Active IV Meds: Lactated Ringers Infusion 1,000 mL (LR 1,000 mL) Start: 10/01/21 9:18:00 EDT, Rate: 50 mL/hr, 10/01/21 9:18:00 EDT ALLERGIES: (1) NKA FAMILY HISTORY: SOCIAL HISTORY: PHYSICAL EXAM: VITALS: HcsvhqAhkyVZLvvylUTSzY0KTJ0ZzvtKv(kg) 10/01 10:0536.2116/[id number]/10 52.3 24 Hr Tmax: 36.2 at 10/01 10:05 36 Hr Tmax: 36.2 at 10/01 10:05 Vital Signs are the last 5 in the past 48 hours. Weights display the last 5 within 7 days. Initial Wt: 10/01 52.3 kg 115 lb Current Wt: 10/01 52.3 kg 115 lb GENERAL: HEENT: CARDIOVASCULAR: RESPIRATORY: ABDOMEN: EXREMETIES: NEUROLOGICAL: PSYCHIATRIC: LABS: No 36hr Lab Data DIAGNOSTICS: IMPRESSION: PLAN: History and Physical Update I have examined the patient; reviewed the H&P and there are no changes to the H&P unless noted below. [facility] Hospital Discharge instructions 10-01-2021 Note Date & Type Note Facility 10-01-2021 Hospital Discharg e instructions Patient Education 10/01/2021 10:34:25 Nausea and Vomiting, Adult, Beso-by-Znoz Nausea and Vomiting, Adult Nausea is feeling sick to your stomach or feeling that you are about to throw up (vomit). Vomiting is when food in your stomach is thrown up and out of the mouth. Throwing up can make you feel weak. It can also make you lose too much water in your body (get dehydrated). If you lose too much water in your body, you may: Feel tired. Feel thirsty. Have a dry mouth. Have cracked lips. Go pee (urinate) less often. Older adults and people with other diseases or a weak body defense system (immune system) are at higher risk for losing too much water in the body. If you feel sick to your stomach and you throw up, it is important to follow instructions from your doctor about how to take care of yourself. Follow these instructions at home: Watch your symptoms for any changes. Tell your doctor about them. Follow these instructions to care for yourself at home. Eating and drinking Take an ORS (oral rehydration solution). This is a drink that is sold at pharmacies and stores. Drink clear fluids in small amounts as you are able, such as: ?Water. ?Ice chips. ?Fruit juice that has water added (diluted fruit juice). ?Low-calorie sports drinks. Eat bland, hsoz-fj-zgzfld foods in small amounts as you are able, such as: ?Bananas. ?Applesauce. ?Rice. ?Low-fat (lean) meats. ?[place]. ?Crackers. Avoid drinking fluids that have a lot of sugar or caffeine in them. This includes energy drinks, sports drinks, and soda. Avoid alcohol. Avoid spicy or fatty foods. General instructions Take tjsc-bnz-wsgntew and prescription medicines only as told by your doctor. Drink enough fluid to keep your pee (urine) pale yellow. Wash your hands often with soap and water. If you cannot use soap and water, use hand enforcement manager. Make sure that all people in your home wash their hands well and often. Rest at home while you get better. Watch your condition for any changes. Take slow and deep breaths when you feel sick to your stomach. Keep all follow-up visits as told by your doctor. This is important. Contact a doctor if: Your symptoms get worse. You have new symptoms. You have a fever. You cannot drink fluids without throwing up. You feel sick to your stomach for more than 2 days. You feel light-headed or dizzy. You have a headache. You have muscle cramps. You have a rash. You have pain while peeing. Get help right away if: You have pain in your chest, neck, arm, or jaw. You feel very weak or you pass out (faint). You throw up again and again. You have throw up that is bright red or looks like black coffee grounds. You have bloody or black poop (stools) or poop that looks like tar. You have a very bad headache, a stiff neck, or both. You have very bad pain, cramping, or bloating in your belly (abdomen). You have trouble breathing. You are breathing very quickly. Your heart is beating very quickly. Your skin feels cold and clammy. You feel confused. You have signs of losing too much water in your body, such as: ?Dark pee, very little pee, or no pee. ?Cracked lips. ?Dry mouth. ?Sunken eyes. ?Sleepiness. ?Weakness. These symptoms may be an emergency. Do not wait to see if the symptoms will go away. Get medical help right away. Call your local emergency services (911 in the [place] Do not drive yourself to the hospital. Summary Nausea is feeling sick to your stomach or feeling that you are about to throw up (vomit). Vomiting is when food in your stomach is thrown up and out of the mouth. Follow instructions from your doctor about eating and drinking to keep from losing too much water in your body. Take dctz-xhr-ysujcwv and prescription medicines only as told by your doctor. Contact your doctor if your symptoms get worse or you have new symptoms. Keep all follow-up visits as told by your doctor. This is important. This information is not intended to replace advice given to you by your health care provider. Make sure you discuss any questions you have with your health care provider. Document Released: 09/26/2008 Document Revised: 08/02/2019 Document Reviewed: 09/18/2018 [employer] Patient Education 2020 [employer] 10/01/2021 10:34:24 Monitored Anesthesia Care, Care After Monitored Anesthesia Care, Care After These instructions provide you with information about caring for yourself after your procedure. Your health care provider may also give you more specific instructions. Your treatment has been planned according to current medical practices, but problems sometimes occur. Call your health care provider if you have any problems or questions after your procedure. What can I expect after the procedure? After your procedure, you may: Feel sleepy for several hours. Feel clumsy and have poor balance for several hours. Feel forgetful about what happened after the procedure. Have poor judgment for several hours. Feel nauseous or vomit. Have a sore throat if you had a breathing tube during the procedure. Follow these instructions at home: For at least 24 hours after the procedure: Have a responsible adult stay with you. It is important to have someone help care for you until you are awake and alert. Rest as needed. Do not: ?Participate in activities in which you could fall or become injured. ?Drive. ?Use heavy machinery. ?Drink alcohol. ?Take sleeping pills or medicines that cause drowsiness. ?Make important decisions or sign legal documents. ?Take care of children on your own. Eating and drinking Follow the diet that is recommended by your health care provider. If you vomit, drink water, juice, or soup when you can drink without vomiting. Make sure you have little or no nausea before eating solid foods. General instructions Take ljry-hmq-nxogohk and prescription medicines only as told by your health care provider. If you have sleep apnea, surgery and certain medicines can increase your risk for breathing problems. Follow instructions from your health care provider about wearing your sleep device: ?Anytime you are sleeping, including during daytime naps. ?While taking prescription pain medicines, sleeping medicines, or medicines that make you drowsy. If you smoke, do not smoke without supervision. Keep all follow-up visits as told by your health care provider. This is important. Contact a health care provider if: You keep feeling nauseous or you keep vomiting. You feel light-headed. You develop a rash. You have a fever. Get help right away if: You have trouble breathing. Summary For several hours after your procedure, you may feel sleepy and have poor judgment. Have a responsible adult stay with you for at least 24 hours or until you are awake and alert. This information is not intended to replace advice given to you by your health care provider. Make sure you discuss any questions you have with your health care provider. Document Released: 07/31/2016 Document Revised: 07/09/2018 Document Reviewed: 07/31/2016 [employer] Patient Education 2020 [employer] 10/01/2021 10:34:23 Colonoscopy, Adult, Care After Colonoscopy, Adult, Care After This sheet gives you information about how to care for yourself after your procedure. Your health care provider may also give you more specific instructions. If you have problems or questions, contact your health care provider. What can I expect after the procedure? After the procedure, it is common to have: A small amount of blood in your stool for 24 hours after the procedure. Some gas. Mild abdominal cramping or bloating. Follow these instructions at home: General instructions For the first 24 hours after the procedure: ?Do not drive or use machinery. ?Do not sign important documents. ?Do not drink alcohol. ?Do your regular daily activities at a slower pace than normal. ?Eat soft, klhe-vx-yhfzcd foods. Take btff-fnw-thvxjua or prescription medicines only as told by your health care provider. Relieving cramping and bloating Try walking around when you have cramps or feel bloated. Apply heat to your abdomen as told by your health care provider. Use a heat source that your health care provider recommends, such as a moist heat pack or a heating pad. ?Place a towel between your skin and the heat source. ?Leave the heat on for 20 30 minutes. ?Remove the heat if your skin turns bright red. This is especially important if you are unable to feel pain, heat, or cold. You may have a greater risk of getting burned. Eating and drinking Drink enough fluid to keep your urine pale yellow. Resume your normal diet as instructed by your health care provider. Avoid heavy or fried foods that are hard to digest. Avoid drinking alcohol for as long as instructed by your health care provider. Contact a health care provider if: You have blood in your stool 2 3 days after the procedure. Get help right away if: You have more than a small spotting of blood in your stool. You pass large blood clots in your stool. Your abdomen is swollen. You have nausea or vomiting. You have a fever. You have increasing abdominal pain that is not relieved with medicine. Summary After the procedure, it is common to have a small amount of blood in your stool. You may also have mild abdominal cramping and bloating. For the first 24 hours after the procedure, do not drive or use machinery, sign important documents, or drink alcohol. Contact your health care provider if you have a lot of blood in your stool, nausea or vomiting, a fever, or increased abdominal pain. This information is not intended to replace advice given to you by your health care provider. Make sure you discuss any questions you have with your health care provider. Document Released: 11/22/2004 Document Revised: 01/31/2018 Document Reviewed: 06/21/2016 [employer] Patient Education 2020 [employer] Follow Up Care 09/06/2021 10:54:25 With:CHARISSA NOWAK Address: [address] [facility] [address] [place] [address]- [phone] Business (1) When: Unknown [facility] Hospital course Narrative Note Date & Type Note Facility Hospital course Narrative No data available for this section [facility] Progress note Note Date & Type Note Facility Progress note No data available for this section [facility] Summary Purpose Family History No Family History Records FoundNo Family History Records Found Advance Directives No Advanced Directives Records FoundNo Advanced Directives Records Found Additional Source Comments INFORMATION SOURCE (unrecogn ized section and content) DATE CREATED AUTHOR AUTHOR'S ORGANIZ ATION 11/02/2021 [facility] ([place]) Care Team (unrecognized sect ion and content) Personnel Name: CHIDI MCFARLAND MD Address: [facility] [address] [place], [place] [address] FOR RECORDS PERTAINING TO PATIENTS WHO ARE OR HAVE BEEN ENROLLED IN A CHEMICAL DEPENDENCY/SUBSTANCEABUSE PROGRAM, SOME INFORMATION MAY BE OMITTED. This clinical summary was aggregated from multiple sources. Caution should be exercised in using it in the provision of clinical care. This summary normalizes information from multiple sources, and as a consequence, information in this document may materially change the coding, format and clinical context of patient data. In addition, data may be omitted in some cases. CLINICAL DECISIONS SHOULD BE BASED ON THE PRIMARY CLINICAL RECORDS. [employer] provides no warranty or guarantee of the accuracy or completeness of information in this document.
[2023-05-04 10:22] LABS: Absolute Lymphocyte Count 1.51 X10^3/uL (0.83-4.51); Absolute Neutrophil Count 1.3 X10^3/uL (2.0-7.7); Basophil# 0.05 X10^3/uL; Basophil% 1.4 % (0-1); Eosinophil# 0.36 X10^3/uL; Eosinophils% 10.2 % (0-5); Erythrocyte Sedimentation Rate 9 mm/hr (0-30); Hematocrit 37.6 % (37-47); Hemoglobin 12.4 g/dL (12.0-15.0); Lymphocyte # 1.51 X10^3/ul (0.83-4.51); Lymphocyte % 42.9 % (19-41); Mean Corpuscular Hgb 31.4 pg (27.0-32.0); Mean Corpuscular Volume 95.2 fL (81-99); Mean Platelet Vol. 8.6 fl (6.2-12.0); Monocyte# 0.33 X10^3/uL; Monocyte% 9.4 % (0-10); NRBC Flagged by Analyzer 0 % (0-5); Neutrophil # 1.27 X10^3/uL (2.7-7.7); Neutrophil % 36.1 % (47-70); Platelet Count 477 K/mm3 (150-450); RBC Distribution Width CV 12.1 % (11.6-14.6); RBC Distribution Width SD 42.1 fl (35.1-43.9); Red Blood Count 3.95 M/mm3 (4.2-5.4); White Blood Count 3.5 K/mm3 (4.4-11.0)
[2023-05-04 11:01] LABS: Vitamin B12 582 pg/mL (211-911); Vitamin D,25 Hydroxy 86.2 ng/mL
[2023-05-04 11:11] LABS: ALB/GLOB Ratio 1.1 RATIO (0.9-2.4); AST(SGOT) 20 U/L (15-37); Alanine Aminotransfer ALT/SGPT 25 U/L (13-56); Albumin, Serum 3.9 g/dL (3.2-5.0); Alkaline Phosphatase 73 U/L (45-117); Anion Gap 7 (5-15); BUN 18 mg/dL (7-18); BUN/Creat Ratio 24.9 RATIO (10-20); Calcium,Total 9.8 mg/dL (8.5-10.1); Chloride 108 mmol/L (98-107); Cholesterol 293 mg/dL (200); Creatinine, Serum 0.72 mg/dL (0.55-1.02); EST Glomerular Filtration Rate 87 mL/min (>60); Est Glom Filt Rate - Afr Amer 106 mL/min (>60); Globulin 3.6 g/dL (2.2-4.2); Glucose 83 mg/dL (74-106); High Density Lipoprotein 94 mg/dL; Potassium 4.4 mmol/L (3.5-5.1); Protein, Total 7.5 g/dL (6.4-8.2); Sodium Level 141 mmol/L (136-145); T4 Free Direct 0.87 ng/dL (0.76-1.46); Thyroid Stim Hormone (TSH) 2.95 uIU/mL (0.358-3.74); Triglycerides 87 mg/dL; Very Low Density Lipoprotein 17 mg/dL (5-40)
[2023-05-10 02:07] LABS: VITAMIN B6 83.1 ug/L (3.4-65.2); Vitamin B1, Thiamine 155.6 nmol/L (66.5-200.0)
== END | disposition home or self-care (01) ==
LOC: MFPLAB 08:02
PROVIDERS: PCP Family Medicine; Visit Provider Family Medicine
DX: E78.00 Pure hypercholesterolemia, unspecified (principal); R53.83 Other fatigue; E53.9 Vitamin B deficiency, unspecified; E55.9 Vitamin D deficiency, unspecified
CPT/HCPCS: 36415; 80053; 80061; 82306; 82533; 82607; 84207; 84425; 84439; 84443; 85025; 85652

== ENCOUNTER → 2023-08-09 | Outpatient (CLI) | payer OTHER, SELFPAY ==
--- NOTE | 2023-08-09 14:09 | RAD_ITS ---
STUDY: X-RAY - PELVIS REASON FOR EXAM: Female, 63 years old. Colitis. Fatigue. TECHNIQUE: One view of the pelvis was obtained. COMPARISON: None. FINDINGS: Normal bowel gas pattern with air seen to the rectosigmoid. Phleboliths Normal bilateral iliac wings, sacroiliac joints and visualized sacrum. Normal visualized bilateral superior and inferior pubic rami. Normal pubic symphysis. Normal ischial tuberosities. Mild arthrosis of both hips. RAD/Pelvis 1 or 2 Views IMPRESSION: Mild arthrosis of both hips. No other abnormality. Electronically Signed: Alban Paz MD at 14:31 EDT ,
[2023-08-09 15:41] LABS: Absolute Lymphocyte Count 1.91 X10^3/uL (0.83-4.51); Basophil# 0.04 X10^3/uL; Basophil% 0.6 % (0-1); Eosinophil# 0.05 X10^3/uL; Eosinophils% 0.8 % (0-5); Hematocrit 41.5 % (37-47); Lymphocyte # 1.91 X10^3/ul (0.83-4.51); Lymphocyte % 29.8 % (19-41); Mean Corp Hgb Conc 33.7 g/dL (32-36); Mean Corpuscular Hgb 30.9 pg (27.0-32.0); Mean Corpuscular Volume 91.6 fL (81-99); Mean Platelet Vol. 8.8 fl (6.2-12.0); Monocyte% 6.3 % (0-10); NRBC Flagged by Analyzer 0 % (0-5); Neutrophil % 62.5 % (47-70); Platelet Count 400 K/mm3 (150-450); RBC Distribution Width SD 40.3 fl (35.1-43.9); Red Blood Count 4.53 M/mm3 (4.2-5.4); White Blood Count 6.4 K/mm3 (4.4-11.0)
[2023-08-09 16:03] LABS: Erythrocyte Sedimentation Rate 10 mm/hr (0-30)
[2023-08-09 16:21] LABS: ALB/GLOB Ratio 1.1 RATIO (0.9-2.4); AST(SGOT) 27 U/L (15-37); Alanine Aminotransfer ALT/SGPT 36 U/L (13-56); Albumin, Serum 4.5 g/dL (3.2-5.0); Alkaline Phosphatase 77 U/L (45-117); Anion Gap 6 (5-15); BUN 26 mg/dL (7-18); CRP < 2.90 mg/L (0.0-3.0); Calcium,Total 9.9 mg/dL (8.5-10.1); Chloride 99 mmol/L (98-107); Creatinine, Serum 0.72 mg/dL (0.55-1.02); EST Glomerular Filtration Rate 87 mL/min (>60); Est Glom Filt Rate - Afr Amer 105 mL/min (>60); Globulin 4.1 g/dL (2.2-4.2); Glucose 71 mg/dL (74-106); Potassium 3.9 mmol/L (3.5-5.1); Protein, Total 8.6 g/dL (6.4-8.2); Rheumatoid Factor < 10.0 IU/mL (<15); Sodium Level 134 mmol/L (136-145)
[2023-08-09 17:26] LABS: Hepatitis B Surface Antibody Non-Reactive; Hepatitis B Surface Antigen Non-Reactive (Nonreactive); Hepatitis C Antibody Non-Reactive (Nonreactive)
[2023-08-11 14:09] LABS: ANTINUCLEAR ANTIBODIES DIRECT Negative (Negative)
[2023-08-18 18:07] LABS: CCP IgG Antibodies 6 units (0-19); HLA B27 Negative (.)
== END | disposition home or self-care (01) ==
LOC: MTLAB 14:07
PROVIDERS: PCP Family Medicine; Referring Provider Internal Medicine Rheumatology; Visit Provider Internal Medicine Rheumatology
DX: R53.83 Other fatigue (principal); K52.839 Microscopic colitis, unspecified
CPT/HCPCS: 36415; 72170; 80053; 81374; 85025; 85652; 86038; 86140; 86200; 86431; 86706; 86803; 87340

== ENCOUNTER → 2023-08-23 | Outpatient (CLI) | payer OTHER, SELFPAY ==
[2023-08-23 12:25] LABS: Vitamin B12 762 pg/mL (211-911); Vitamin D,25 Hydroxy 48.2 ng/mL
[2023-08-23 12:30] LABS: AST(SGOT) 20 U/L (15-37); Alanine Aminotransfer ALT/SGPT 26 U/L (13-56); Alkaline Phosphatase 68 U/L (45-117); Anion Gap 6 (5-15); BUN 24 mg/dL (7-18); BUN/Creat Ratio 30.9 RATIO (10-20); Calcium,Total 9.7 mg/dL (8.5-10.1); Chloride 105 mmol/L (98-107); Creatinine, Serum 0.78 mg/dL (0.55-1.02); EST Glomerular Filtration Rate 80 mL/min (>60); Est Glom Filt Rate - Afr Amer 97 mL/min (>60); Glucose 85 mg/dL (74-106); Phosphorus 3.3 mg/dL (2.5-4.9); Potassium 4.3 mmol/L (3.5-5.1); Sodium Level 139 mmol/L (136-145)
[2023-08-26 00:06] LABS: PROEL- A/G Ratio 1.4 (0.7-1.7); PROEL- Albumin 4.2 g/dL (2.9-4.4); PROEL- Alpha-1 Globulin 0.2 g/dL (0.0-0.4); PROEL- Alpha-2 Globulin 0.6 g/dL (0.4-1.0); PROEL- Beta Globulin 1.2 g/dL (0.7-1.3); PROEL- TOTAL PROTEIN 7.2 g/dL (6.0-8.5); PROEL-M-Spike Not Observed g/dL (Not Observed); Vitamin B1, Thiamine 145.1 nmol/L (66.5-200.0)
== END | disposition home or self-care (01) ==
LOC: MFPLAB 10:27
PROVIDERS: PCP Family Medicine; Visit Provider Family Medicine
DX: E53.9 Vitamin B deficiency, unspecified (principal); E55.9 Vitamin D deficiency, unspecified; E88.09 Other disorders of plasma-protein metabolism, not elsewhere classified
CPT/HCPCS: 36415; 80053; 82306; 82607; 84100; 84165; 84425

== ENCOUNTER → 2023-08-24 | Outpatient (CLI) | payer OTHER, SELFPAY ==
[2023-08-24 10:41] LABS: Cholesterol 318 mg/dL (200); High Density Lipoprotein 86 mg/dL; Triglycerides 143 mg/dL; Very Low Density Lipoprotein 29 mg/dL (5-40)
== END | disposition home or self-care (01) ==
LOC: MFPLAB 08:19
PROVIDERS: PCP Family Medicine; Visit Provider Family Medicine
DX: E78.00 Pure hypercholesterolemia, unspecified (principal)
CPT/HCPCS: 36415; 80061

== ENCOUNTER → 2023-11-15 | Outpatient (CLI) | payer OTHER, SELFPAY ==
--- NOTE | 2023-11-15 10:20 | BI_ITS ---
MAMMOGRAPHY - BILATERAL SCREENING REASON FOR EXAM: Female, 63 years old. Routine annual screening examination. PERTINENT HISTORY: Non-contributory. TECHNIQUE: Digital bilateral breast hayley (3D mammographic acquisition) in the CC and MLO projections. 2-D mediolateral oblique (MLO) and craniocaudad (CC) views of both breasts were obtained. CAD: Full Field Digital Mammography with Computer Added Detection was performed. COMPARISON: Comparison is made with prior study dated May 16, 2022 and September 25, 2020. FINDINGS: Breast Composition: There are scattered areas of fibroglandular density. There are no dominant masses or suspicious calcifications. Stable small benign appearing bilateral axillary lymph nodes. No other significant abnormalities are identified. There has been no significant change since the prior study. BI/SCRN MAMM (CAD)W/HAYLEY BILAT IMPRESSION: Stable bilateral screening mammogram. Yearly follow-up mammogram recommended. (A) ASSESSMENT CATEGORY: BIRADS Category 2: Benign. A letter regarding these results will be sent to the patient by the facility within 30 days. Approximately 10% of breast cancers are not detected by mammography. A normal mammogram should not delay biopsy of a clinically suspicious abnormality. [id number] Electronically Signed: Vikram Chaves MD at 11:04 EDT ,
== END | disposition home or self-care (01) ==
LOC: OPBI 10:20
PROVIDERS: PCP Family Medicine; Referring Provider Nurse Practitioner Women's Health; Visit Provider Nurse Practitioner Women's Health
DX: Z12.31 Encounter for screening mammogram for malignant neoplasm of breast (principal)
CPT/HCPCS: 77063; 77067